=== PATIENT | male | born 1940 | race Caucasian/White ===

== ENCOUNTER 2018-02-14 13:44 | Observation (INO) | payer MEDICARE, OTHER, SELFPAY ==
[2018-02-14] VITALS (11 sets, daily range): BP systolic 99–109; BP diastolic 51–64; PULSE 58–83; RESP 15–18; TEMP 36.4–37.4; O2SAT 94–97; BMI 20.7; BMI 19.1; BMI 19.2
--- NOTE | 2018-02-14 13:48 | EKG12_ITS ---
Test Reason : CP Blood Pressure : / mmHG Vent. Rate : 061 BPM Atrial Rate : 061 BPM P-R Int : 152 ms QRS Dur : 114 ms QT Int : 428 ms P-R-T Axes : 053 -23 -20 degrees QTc Int : 430 ms Normal sinus rhythm Inferior infarct , age undetermined , cannot be excluded Abnormal ECG Confirmed by FLOR LEIGH, NUNU ([id number]), non linear editor FERNY SNOW ([id number]) on 02/16/2018 2:54:34 PM Referred By: DINESH/NAHUN Confirmed By:NUNU RAY MD
--- NOTE | 2018-02-14 13:51 | RAD_ITS ---
STUDY: X-RAY CHEST REASON FOR EXAM: Male, 77 years old. Chest pain TECHNIQUE: Single view of the chest was obtained COMPARISON: None. FINDINGS: No lung consolidation. Elevated left hemidiaphragm. Bilateral perihilar congestive changes. Ill-defined nodular density in the right upper lobe which can be assessed with chest CT on a nonemergent basis. Small left-sided pleural effusion with subsegmental atelectasis is suspected. IMPRESSION: Mild cardiomegaly with bilateral pulmonary vascular congestion. Elevated left hemidiaphragm with left lower lobe atelectasis and subtle airspace opacities. Ill-defined nodular density in the right upper lobe which can be assessed with nonemergent chest CT Electronically Signed: Leobardo Alvarado, at 14:29 EDT Tel , Service support , RAD/Chest 1 View (Portable)
[2018-02-14 14:07] LABS: Absolute Lymphocyte Count 1.65 X10^3/ul (0.83-4.51); Absolute Neutrophil Count 7.9 X10^3/uL (2.0-7.7); Basophil# 0.02 X10^3/uL; Basophil% 0.2 % (0-1); Eosinophil# 0.23 X10^3/uL; Eosinophils% 2.1 % (0-5); Hematocrit 31.6 % (40-54); Hemoglobin 10.2 g/dl (13.0-16.5); Lymphocyte # 1.65 X10^3/ul (4.0); Mean Corp Hgb Conc 32.3 g/gl (32-36); Mean Corpuscular Hgb 29.7 pg (27.0-32.0); Mean Corpuscular Volume 91.9 fL (80-94); Mean Platelet Vol. 8.2 fl (6.2-12.0); Monocyte# 1.18 X10^3/uL; Monocyte% 10.7 % (0-10); Neutrophil # 7.93 X10^3/uL (2.7-7.7); Neutrophil % 71.9 % (47-70); Platelet Count 259 K/mm3 (150-450); RBC Distribution Width CV 14.1 % (11.6-14.6); RBC Distribution Width SD 45.7 fl (35.1-43.9); Red Blood Count 3.44 M/mm3 (4.6-6.2)
[2018-02-14 14:08] LABS: POSITIVE COUNT NO; POSITIVE DIFFERENTIAL NO; POSITIVE MORPHOLOGY NO
--- NOTE | 2018-02-14 14:26 | ED.RN ---
PT DENIES PAIN OR NAUSEA AT THIS TIME. PT'S BP IS ALSO HYPOTENSIVE. NOT MEDICATING PT WITH MORPHINE OR ZOFRAN AT THIS TIME
[2018-02-14 14:27] LABS: Anion Gap 6 (5-15); BUN 13 mg/dL (7-18); BUN/Creat Ratio 16.3 RATIO (10-20); Calcium,Total 8.2 mg/dL (8.5-10.1); Chloride 107 mmol/L (98-107); EST Glomerular Filtration Rate 100 mL/min (>60); Est Glom Filt Rate - Afr Amer 121 mL/min (>60); Estimated Creatinine Clearance 67.81 ml/min; Glucose 95 mg/dL (74-106); Potassium 3.8 mmol/L (3.5-5.1); Sodium Level 140 mmol/L (136-145)
[2018-02-14 14:40] LABS: BNP,B-Type NATRIURETIC PEPTIDE 187.1 pg/mL (0-100)
--- NOTE | 2018-02-14 15:23 | CT_ITS ---
STUDY: CT CHEST WITHOUT CONTRAST REASON FOR EXAM: Male, 77 years old. Nodule found on chest x-ray RADIATION DOSAGE (If Supplied By Facility): CTDIvol = ( 9.88 ) mGy, DLP = ( 358.01 ) mGycm TECHNIQUE: Transaxial imaging was performed without the administration of intravenous contrast material. Individualized dose optimization techniques were used for this CT. COMPARISON: None. FINDINGS: There is an ill-defined wispy infiltrate throughout the right upper lobe. There is no evidence of discrete pulmonary mass or nodule. There is no demonstrated pleural abnormality. Coronary arterial calcifications are present. There is no pericardial effusion. There are scattered nonpathologically enlarged mediastinal nodes. Hilar areas are difficult to assess on this noncontrast study. There is no obvious hilar mass or adenopathy. Normal unenhanced pulmonary arteries. There are calcified plaques of the thoracic aorta. There is mild aneurysmal dilatation of the ascending thoracic aorta proximal to the arch measuring up to 3.7 cm in diameter. The bones are osteopenic. There is diffuse endplate spondylosis of the visualized thoracolumbar spine. Schmorl's node formation is seen involving several of the lower thoracic vertebrae. There are multiple old right-sided rib fractures. The majority of the gastric volume is within the thorax, which may represent evidence of gastric pull-through procedure. CT/Chest without Contrast IMPRESSION: 1. Ill-defined wispy infiltrate noted throughout the right upper lobe. There is no evidence of discrete pulmonary mass or nodule. 2. Mild aneurysmal dilatation of the ascending thoracic aorta proximal to the arch measuring up to 3.7 cm in diameter. 3. Generalized osteopenia. Diffuse endplate spondylosis of the visualized thoracolumbar spine. There is Schmorl's node formation of several of the lower thoracic vertebrae. There are multiple old right-sided rib fractures. 4. The majority of the gastric volume is within the thorax, which may represent evidence of gastric pull-through procedure. Electronically Signed: Ernesto Hawley MD at 17:41 EDT , Service support ,
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
--- NOTE | 2018-02-14 15:32 | ED.VISSUMM ---
- ER Visit Summary Date of Service: 02/14/18 Chief Complaint: [] Chest pain today nursing center History of Present Illness: The patient is a 77 M [] hx of memory loss prior fall with rib fractures complained to nursing staff and nursing center of left-sided chest pain he was brought to the emergency department he does not recall that history per the family he has been doing well at the nursing center he has a prior history for they believe a cardiac echo done years ago showing possible signs of CAD but he did not follow-up, he had surgery to the left side abdomen at some time as well. He has had no fever no cough no history of PE DVT or ID he has been eating and drinking light less than normal but in general doing okay at the nursing center Physical Examination: [] Patient really cannot provide any history he is very polite and pleasant cooperative he will move from topic to topic his HEENT chest neck exam unremarkable the abdomen soft nontender he points to the left subcostal margin as an area of discomfort that he has had for over 20 years since this abdominal surgery is upper lower extremities unremarkable neurologically he is awake to his normal answering questions moving all 4 extremities pleasantly confused very poor memory Test Results: [] Emergency Department Course and Treatment: [] EKG and labs are generally unremarkable see those reports a chest x-ray shows multiple abnormalities including findings consistent with CHF left pleural effusion and scattered other nonspecific nodules recommend follow-up CT please see those reports given all of the above I have called the hospital see him for admission and further management Treatment Plan: [] Disposition: [] Admit stable Impression: [] Chest pain, congestive heart failure, left pleural effusion, nonspecific pulmonary nodules This note was generated with [employer] dictation software. It may contain incorrect words, spelling, and punctuation that were not noted in review of the chart prior to signing ED Disposition - Plan for ED Patient: Chief Complaint: Chest Pain Referrals: Andreas Day PA-C [Primary Care Provider] -
--- NOTE | 2018-02-14 15:35 | ED.DCSUM_ITS ---
- ER Visit Summary Date of Service: 02/14/18 Chief Complaint: [] Chest pain today nursing center History of Present Illness: The patient is a 77 M [] hx of memory loss prior fall with rib fractures complained to nursing staff and nursing center of left- sided chest pain he was brought to the emergency department he does not recall that history per the family he has been doing well at the nursing center he has a prior history for they believe a cardiac echo done years ago showing possible signs of CAD but he did not follow-up, he had surgery to the left side abdomen at some time as well. He has had no fever no cough no history of PE DVT or ME he has been eating and drinking light less than normal but in general doing okay at the nursing center Physical Examination: [] Patient really cannot provide any history he is very polite and pleasant cooperative he will move from topic to topic his HEENT chest neck exam unremarkable the abdomen soft nontender he points to the left subcostal margin as an area of discomfort that he has had for over 20 years since this abdominal surgery is upper lower extremities unremarkable neurologically he is awake to his normal answering questions moving all 4 extremities pleasantly confused very poor memory Test Results: [] Emergency Department Course and Treatment: [] EKG and labs are generally unremarkable see those reports a chest x-ray shows multiple abnormalities including findings consistent with CHF left pleural effusion and scattered other nonspecific nodules recommend follow-up CT please see those reports given all of the above I have called the hospital see him for admission and further management Treatment Plan: [] Disposition: [] Admit stable Impression: [] Chest pain, congestive heart failure, left pleural effusion, nonspecific pulmonary nodules This note was generated with [employer] dictation software. It may contain incorrect words, spelling, and punctuation that were not noted in review of the chart prior to signing ED Disposition - Plan for ED Patient: Chief Complaint: Chest Pain Referrals: Andreas Day PA-C [Primary Care Provider] -
--- NOTE | 2018-02-14 17:21 | ECHOD_ITS ---
Reason For Study: CP Procedure This was a 2D Doppler, Color Flow transthoracic echocardiogram. Exam performed portable in patient room. Left Ventricle Normal LV size. Left ventricular systolic function is normal. The estimated ejection fraction is 47 %. Mild segmental systolic dysfunction (see wall motion). Transmitral diastolic flow velocities suggest mild (stage 1) diastolic dysfunction (reversed pattern). Mid-Inferior: Akinetic. Infero- Basal: Akinetic. Basal inferoseptal: Hypokinetic. The rest of the wall segments are normal. Right Ventricle Normal RV size. Normal systolic function. Atria Normal left atrium. Normal right atrium. Mitral Valve Normal mitral valve. Mild (1+) eccentric mitral valve insufficiency. Tricuspid Valve Normal tricuspid valve. Unable to estimate RV systolic pressure, pulmonary artery pressure probably normal. Aortic Valve Trisinus/trileaflet aortic valve. Mild (1+) eccentric aortic valve insufficiency. Pulmonic Valve Normal pulmonic valve. Great Vessels Mildly dilated aortic root. The pulmonary artery is normal size. Inferior vena cava collapse with sniff. Pericardium/Pleural No pericardial effusion. MMode/2D Measurements & Calculations LVIDd: 4.1 cm IVSd: 1.6 cm Ao root diam: 3.9 cm LVIDs: 3.0 cm LVPWd: 1.0 cm RVDd: 3.0 cm FS: 28.5 % LAV(MOD-bp): 35.3 ml EDV(MOD-sp4): 110.4 ml SV(MOD-sp4): 66.9 ml LAV(MOD-bp) Indexed: 21.0 ml/m2 ESV(MOD-sp4): 43.5 ml LAV(MOD-sp2): 37.0 ml EF(MOD-sp4): 60.6 % LAV(MOD-sp4): 29.4 ml LA A4 area: 12.9 cm2 RA A4 area: 11.1 cm2 Time Measurements MV dec time: 0.35 sec Doppler Measurements & Calculations MV E max oral: 68.8 cm/sec Lat Peak E' Oral: 8.9 cm/sec Med Peak E' Oral: 5.9 cm/sec MV A max oral: 112.2 cm/sec E/E' lat: 7.7 E/E' med: 11.7 MV E/A: 0.61 Ao V2 max: 168.3 cm/sec LV V1 max: 84.9 cm/sec PA V2 max: 101.6 cm/sec Ao max P.3 mmHg LV V1 max P.9 mmHg Interpretation Summary Normal LV size. The estimated ejection fraction is 47 %. Mild segmental systolic dysfunction (see wall motion). Transmitral diastolic flow velocities suggest mild (stage 1) diastolic dysfunction (reversed pattern). Mildly dilated aortic root. Ordering Physician: Malcom Jordan Referring Physician: N/A Performed By: Lise Mixon RDCS
[2018-02-14] MEDS: Budesonide Respules 0.5 MG/2 ML AMPUL.NEB. INHALATION (19:32)
[2018-02-14] MEDS: Montelukast 10 MG Tablet PO (22:35)
[2018-02-14] MEDS: Magnesium Oxide 400 MG Tablet PO (22:35)
[2018-02-14] MEDS: Metoprolol Tartrate 50 MG Tablet PO (22:35)
[2018-02-14] MEDS: Rivastigmine Tartrate 1.5 MG Capsule 3 MG PO (22:35)
[2018-02-14] MEDS: Zolpidem Tartrate 5 MG Tablet PO (23:50)
[2018-02-15] VITALS (9 sets, daily range): BP systolic 110–113; BP diastolic 43–52; PULSE 54–65; RESP 16–18; TEMP 36.4–36.9; O2SAT 94–96
[2018-02-15 04:22] LABS: Hematocrit 31.6 % (40-54); Hemoglobin 10.1 g/dl (13.0-16.5); Mean Corpuscular Hgb 28.9 pg (27.0-32.0); Mean Corpuscular Volume 90.5 fL (80-94); Mean Platelet Vol. 8.1 fl (6.2-12.0); Platelet Count 201 K/mm3 (150-450); RBC Distribution Width CV 14.5 % (11.6-14.6); RBC Distribution Width SD 47.1 fl (35.1-43.9); Red Blood Count 3.49 M/mm3 (4.6-6.2); White Blood Count 8.5 K/mm3 (4.4-11.0)
[2018-02-15 04:27] LABS: Scan Indicated on CBC? Y/N NO
[2018-02-15 04:36] LABS: International Normalized Ratio 1.2; Prothrombin Time (Protime)PT. 15.6 SECONDS (11.7-14.9)
[2018-02-15 04:38] LABS: Partial Thromboplast Time 45.8 Seconds (24.1-36.2)
[2018-02-15 05:08] LABS: Anion Gap 6 (5-15); BUN 12 mg/dL (7-18); Calcium,Total 8.3 mg/dL (8.5-10.1); Chloride 106 mmol/L (98-107); EST Glomerular Filtration Rate 115 mL/min (>60); Est Glom Filt Rate - Afr Amer 140 mL/min (>60); Estimated Creatinine Clearance 50.05 ml/min; Glucose 88 mg/dL (74-106); Potassium 3.9 mmol/L (3.5-5.1); Sodium Level 140 mmol/L (136-145)
--- NOTE | 2018-02-15 05:55 | EKG12_ITS ---
Test Reason : AM Blood Pressure : / mmHG Vent. Rate : 054 BPM Atrial Rate : 054 BPM P-R Int : 154 ms QRS Dur : 118 ms QT Int : 442 ms P-R-T Axes : 049 -19 -29 degrees QTc Int : 419 ms Sinus bradycardia Inferior infarct , age undetermined Abnormal ECG When compared with ECG of 14-FEB-2018 13:45, MANUAL COMPARISON REQUIRED, DATA IS UNCONFIRMED Confirmed by TOSIN DUMONT ([id number]), editor sound FERNY SNOW ([id number]) on 02/18/2018 3:05:13 PM Referred By: JOSE RAMON Confirmed By:TOSIN DUMONT
[2018-02-15] MEDS: Budesonide Respules 0.5 MG/2 ML AMPUL.NEB. INHALATION (07:34)
[2018-02-15] MEDS: Aspirin 81 MG TAB.CHEW PO (07:38)
--- NOTE | 2018-02-15 08:14 | NURSING ---
This nurse contacted [facility] in nuclear medicine at this time to notify him that patient was noted to have telemetry changes with a bundle branch block and bradycardia. EKG confirmed bradycardia but bundle branch had resolved prior to EKG. Patient to go around 0900 for stress.
--- NOTE | 2018-02-15 08:47 | EKG12_ITS ---
Test Reason : CHANGES Blood Pressure : / mmHG Vent. Rate : 059 BPM Atrial Rate : 059 BPM P-R Int : 150 ms QRS Dur : 114 ms QT Int : 428 ms P-R-T Axes : 054 -23 -24 degrees QTc Int : 423 ms Sinus bradycardia Inferior infarct , age undetermined Abnormal ECG When compared with ECG of 15-FEB-2018 05:23, MANUAL COMPARISON REQUIRED, DATA IS UNCONFIRMED Confirmed by TOSIN DUMONT ([id number]), business editor FERNY SNOW ([id number]) on 02/18/2018 3:05:48 PM Referred By: MADONNA Confirmed By:TOSIN DUMONT
[2018-02-15] MEDS: Multivitamins,Therapeutic Tablet 1 TABLET PO (11:13)
--- NOTE | 2018-02-15 11:13 | NURSING ---
Patient returned from stress test. Vitals obtained and medications due at 0800 and 1000 given at this time.
[2018-02-15] MEDS: Loratadine 10 MG Tablet PO (11:14)
[2018-02-15] MEDS: Folic Acid 1 MG Tablet PO (11:14)
[2018-02-15] MEDS: Venlafaxine XR 37.5 MG Capsule PO (11:14)
[2018-02-15] MEDS: dilTIAZem CD 240 MG Capsule PO (11:14)
[2018-02-15] MEDS: Rivastigmine Tartrate 1.5 MG Capsule 3 MG PO (11:15)
[2018-02-15] MEDS: Pantoprazole Sodium 20 MG Tablet PO (11:15)
[2018-02-15] MEDS: Rivaroxaban 20 MG Tablet PO (11:15)
[2018-02-15] MEDS: Metoprolol Tartrate 50 MG Tablet PO (11:15)
[2018-02-15] MEDS: Magnesium Oxide 400 MG Tablet PO (11:15)
--- NOTE | 2018-02-15 11:52 | STRESSREP ---
Stress Test Report Pharmacologic myocardial perfusion stress test. 77-year-old lady with a history of chest pain. Medications aspirin Cardizem metoprolol. Stress protocol: Resting EKG demonstrates normal sinus rhythm with a rate of 62 bpm normal intervals and noted resting blood pressure is 110/58 centimeters of mercury. The patient exercised according to regular Ivan protocol for 2 minutes and 44 seconds attaining a maximum heart rate of 89 bpm which was 62% of maximum predicted heart rate. To the low workload the test was changed to a pharmacologic stress test. 0.4 mg of regadenoson was infused per usual protocol followed by rapid intravenous saline flush injection continuous EKG which was performed the patient maintained sinus rhythm throughout the recording. Nonspecific ST-T wave changes were noted at rest and during peak infusion the resting blood pressure is 108/58 mmHg. Myocardial perfusion protocol. 11.3 mCi of technetium 99m sestamibi was injected at rest. 0.4 mg regadenoson was infused per usual protocol peak infusion 32.4 mCi of technetium 99m sestamibi was injected stress images were obtained stress and rest images were reconstructed and compared in the short axis vertical long and horizontal long axis. Gated images were also obtained Perfusion SPECT analysis. Review of the stress images demonstrate normal perfusion noted in the anteroseptal wall anterior wall, and basal inferior wall. There is a large defect involving the entire inferior wall towards the apex in the basal lateral wall and septum. The resting images demonstrate a similar patent. There is no improvement to suggest ischemia. Gated SPECT analysis: The gated ejection fraction is noted to be 27% with severe hypokinesis to akinesis of the inferior wall. Conclusion: Pharmacologic myocardial perfusion stress test with evidence of previous extensive inferior infarct. The infarct extends to the basal lateral wall as well as the basal septal wall. No ischemia is noted. Ischemic cardiomyopathy present.
--- NOTE | 2018-02-15 13:23 | PCM.PN.HOSP ---
Patient Problems: Active and Suspected Problems Chest pain (Acute) Dementia (Acute) Subjective: No further chest pain. Vitals/I&O's: Vital Signs Temp Pulse Resp BP Pulse Ox 36.8 C 65 18 111/52 L 96 02/15/18 11:05 02/15/18 11:15 02/15/18 11:05 02/15/18 11:05 02/15/18 11:05 Oxygen Flow Rate (L/min) 2 Oxygen Delivery Method Room Air Weight: 57.2 kg Body Mass Index (BMI) 19.1 Intake and Output for Last 24 Hours 02/13/18 02/14/18 02/15/18 23:59 23:59 23:59 Intake Total 120 / 120 470 / 470 Balance 120 / 120 470 / 470 General: Alert, Cooperative, No apparent distress HEENT: Atraumatic, Normocephalic Neck: No Nodes, Thyroid Normal Size and Texture Lungs: Clear to auscultation, Normal air movement, No rhonchi, No wheeze Cardiovascular: Regular rate, Regular Rhythm, Normal S1, Normal S2, No murmurs Abdomen: Bowel Sounds Present, Soft, Non Tender, Non-Distended, No Hepato-splenomegaly Extremities: No edema, No Calf Tenderness Skin: No rashes, No breakdown Psych/Mental Status: Normal Affect, Appropriate Laboratory Results 02/14/18 18:15: Troponin I < 0.02 02/14/18 22:25: Troponin I < 0.02 02/15/18 04:08: WBC 8.5, RBC 3.49 L, Hgb 10.1 L, Hct 31.6 L, MCV 90.5, MCH 28.9, MCHC 32.0, RDW 14.5, RDW Differential 47.1 H, Plt Count 201, MPV 8.1 02/15/18 04:08: Sodium 140, Potassium 3.9, Chloride 106, Carbon Dioxide 28.0, Anion Gap 6, BUN 12, Creatinine 0.70, Estim Creat Clear Calc 50.05, Est GFR (MDRD) Af Amer 140, Est GFR (MDRD) Non-Af 115, BUN/Creatinine Ratio 17.0, Glucose 88, Calcium 8.3 L, Magnesium 2.0 02/15/18 04:08: Troponin I < 0.02 02/15/18 04:08: PT 15.6 H, INR 1.2, APTT 45.8 H Current Medications Al Hydroxide/Mg Hydroxide (Mylanta Ii) 30 ml PO Q6H PRN PRN PRN Reason: Gastric burning Aspirin (Aspirin, Baby) 81 mg PO DAILY@0800 [facility] Last Admin: 02/15/18 07:38 Dose: 81 mg Budesonide (Pulmicort Aerosol) 0.5 mg INHALATION BID [facility] Last Admin: 02/15/18 07:34 Dose: 0.5 mg Diltiazem HCl (Cardizem Cd) 240 mg PO DAILY [facility] Last Admin: 02/15/18 11:14 Dose: 240 mg Folic Acid (Folic Acid) 1 mg PO DAILY@0800 [facility] Last Admin: 02/15/18 11:14 Dose: 1 mg Lactobacillus Acidophilus (Acidophilus) 1 tablet PO BID [facility] Last Admin: 02/15/18 11:13 Dose: 1 tablet Loratadine (Claritin) 10 mg PO DAILY [facility] Last Admin: 02/15/18 11:14 Dose: 10 mg Magnesium Hydroxide (Milk Of Magnesia) 30 ml PO DAILY PRN PRN Reason: Constipation Magnesium Oxide (Mag-Ox 400) 400 mg PO BID [facility] Last Admin: 02/15/18 11:15 Dose: 400 mg Metoprolol Tartrate (Lopressor (Beta Carroll)) 50 mg PO BID [facility] Last Admin: 02/15/18 11:15 Dose: 50 mg Montelukast Sodium (Singulair) 10 mg PO QHS [facility] Last Admin: 02/14/18 22:35 Dose: 10 mg Multivitamins (Multivitamin) 1 tablet PO DAILY@0800 [facility] Last Admin: 02/15/18 11:13 Dose: 1 tablet Nitroglycerin (Nitrostat) 0.4 mg SUBLINGUAL Q5M PRN PRN Reason: CHEST PAIN Nutritional Formula (Lactose Free) (Ensure Enlive) 120 ml PO 4X/DAY [facility] Last Admin: 02/15/18 11:16 Dose: Not Given Ondansetron HCl (Zofran) 4 mg IV Q8H PRN PRN PRN Reason: NAUSEA Pantoprazole Sodium (Protonix) 20 mg PO DAILY [facility] Last Admin: 02/15/18 11:15 Dose: 20 mg Rivaroxaban (Xarelto) 20 mg PO DAILY [facility] Last Admin: 02/15/18 11:15 Dose: 20 mg Rivastigmine Tartrate (Exelon) 3 mg PO BID [facility] Last Admin: 02/15/18 11:15 Dose: 3 mg Sodium Chloride () 5 - 30 ml IV UD PRN PRN Reason: SALINE FLUSH Temazepam (Restoril) 15 mg PO QHS PRN DAVION Tramadol HCl (Ultram) 50 mg PO TID PRN PRN PRN Reason: PAIN Venlafaxine HCl (Effexor Xr) 37.5 mg PO DAILY [facility] Last Admin: 02/15/18 11:14 Dose: 37.5 mg Zolpidem Tartrate (Ambien (Generic)) 5 mg PO QHS PRN PRN PRN Reason: INSOMNIA Last Admin: 02/14/18 23:50 Dose: 5 mg Medical Necessity - Tobacco Use Smoking Status: Former smoker Assessment/Plan Active and Suspected Problems Chest pain (Acute) Dementia (Acute) 1. Chest pain stress negative however, stress noted EF of 27%. Will await echo to see if that low, and if so, will consult cardiology for input. 2. dementia: complicating care. Code Visit OBSV E&M: 05779 Subsequent observation care L2
--- NOTE | 2018-02-15 15:02 | CASEMGMT ---
Addendum entered by Dionne Park 02/15/18 15:35: NANCY also let Tammi at [facility] know patient is being d/c as he is active with them per [facility]. Dionne BHAT Original Note: Addendum entered by Dionne Park 02/15/18 15:25: NANCY faxed d/c instructions to [facility]. Dionne BHAT Original Note: NANCY spoke with physician and patient will likely be discharged back to [facility] today. NANCY called patient's son, David and left him a voice mail letting him know patient will likely be d/c today. NANCY then called [facility] and let them know patient will likely return today. Patient's other son Santo came in and he said he will transport patient back. Plan: d/c back to [facility]. Family will transport. Dionne BHAT
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
== END 2018-02-15 15:03 | disposition home or self-care (01) ==
LOC: ED 14:38 → PCU 15:49
PROVIDERS: Family Medicine; Admitting Provider Internal Medicine; Emergency Provider Emergency Medicine; Family Provider Family Medicine; PCP Family Medicine
DX: R07.89 Other chest pain (principal); F03.90 Unspecified dementia, unspecified severity, without behavioral disturbance, psychotic disturbance, mood disturbance, and anxiety; I48.0 Paroxysmal atrial fibrillation; K21.9 Gastro-esophageal reflux disease without esophagitis; Z79.899 Other long term (current) drug therapy; Z79.82 Long term (current) use of aspirin; Z87.891 Personal history of nicotine dependence; Z79.51 Long term (current) use of inhaled steroids; Z79.01 Long term (current) use of anticoagulants; Z91.81 History of falling; R41.3 Other amnesia; I11.0 Hypertensive heart disease with heart failure; I50.9 Heart failure, unspecified
CPT/HCPCS: 36415; 71045; 71250; 78452; 80048; 83735; 83880; 84484; 85025; 85027; 85610; 85730; 93005; 93017; 93306; 94640; 97802; 99218; 99251; 99285; A9500; J7030; A4216; G0378; G0463; J2785

== ENCOUNTER 2018-03-06 13:55 | Emergency (ER) | payer MEDICARE, OTHER, SELFPAY ==
[2018-03-06 13:57] VITALS: BP 104/74; PULSE 47; RESP 16; TEMP 36.8; O2SAT 100; BMI 27.8
--- NOTE | 2018-03-06 14:12 | CT_ITS ---
STUDY: CT ABDOMEN AND PELVIS WITH CONTRAST REASON FOR EXAM: Male, 77 years old. Abdominal pain RADIATION DOSAGE (If Supplied By Facility): CTDIvol = ( 10.94 ) mGy, DLP = ( 561.52 ) mGycm TECHNIQUE: Transaxial images were obtained from the dome of the diaphragm to the symphysis pubis without oral contrast. 100mL ml of Isovue 300 contrast was administered. Sagittal and coronal images were reconstructed. Individualized dose optimization techniques were used for this CT. COMPARISON: None. FINDINGS: There is elevation of the left hemidiaphragm with overlying atelectasis. The visualized portions of the heart and pericardium are within normal limits. There are small gallstones present. The liver is within normal limits. There are no suspicious hepatic lesions. The spleen is normal in size. The pancreas is within normal limits. The adrenal glands are within normal limits. There are no obstructing renal stones. There is no hydronephrosis. There is a cyst in the left kidney. 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 There is debris noted in the gastric lumen. There is no bowel obstruction or inflammation. The appendix is not visualized, but there are no findings to suggest acute appendicitis. The aorta is normal in caliber. There is no abdominal or pelvic free air, free fluid or fluid collection. There is a 7.4 x 5.0 cm soft tissue mass along the sacrum and left pelvic sidewall which encases the left iliac vessels. This may represent enlarged lymph nodes and is suspicious for neoplasm. The prostate is enlarged, measuring 6.4 x 4.7 cm. There are no destructive osseous lesions. CT/Abdomen/Pelvis W IV Cont ONLY IMPRESSION: No bowel obstruction or inflammation. 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 There is debris noted in the gastric lumen. 7.4 x 5.0 cm soft tissue mass along the sacrum and left pelvic sidewall which encases the left iliac vessels. This may represent enlarged lymph nodes and is suspicious for neoplasm. Further evaluation with PET/CT is recommended. Gallstones. Enlarged prostate. Electronically Signed: Cash Amin, at 15:17 EDT Tel , Service support ,
[2018-03-06 14:21] LABS: Absolute Lymphocyte Count 1.44 X10^3/ul (0.83-4.51); Absolute Neutrophil Count 3.6 X10^3/uL (2.0-7.7); Basophil# 0.02 X10^3/uL; Basophil% 0.3 % (0-1); Eosinophil# 0.26 X10^3/uL; Eosinophils% 4.4 % (0-5); Hematocrit 33.8 % (40-54); Hemoglobin 10.8 g/dl (13.0-16.5); Lymphocyte # 1.44 X10^3/ul (4.0); Lymphocyte % 24.2 % (19-41); Mean Corpuscular Hgb 29.7 pg (27.0-32.0); Mean Corpuscular Volume 92.9 fL (80-94); Mean Platelet Vol. 7.9 fl (6.2-12.0); Monocyte# 0.63 X10^3/uL; Monocyte% 10.6 % (0-10); Neutrophil % 60.3 % (47-70); Platelet Count 251 K/mm3 (150-450); RBC Distribution Width CV 14.4 % (11.6-14.6); RBC Distribution Width SD 47.5 fl (35.1-43.9); Red Blood Count 3.64 M/mm3 (4.6-6.2)
[2018-03-06 14:22] LABS: POSITIVE COUNT NO; POSITIVE DIFFERENTIAL NO; POSITIVE MORPHOLOGY NO
[2018-03-06] MEDS: 0.9% Normal Saline 1,000 ML 1000 ML IV (14:22)
[2018-03-06 14:44] LABS: ALB/GLOB Ratio 0.8 RATIO (0.9-2.4); AST(SGOT) 19 U/L (15-37); Alanine Aminotransfer ALT/SGPT 9 U/L (16-61); Albumin, Serum 3.1 g/dL (3.2-5.0); Alkaline Phosphatase 81 U/L (45-117); Anion Gap 6 (5-15); BUN 18 mg/dL (7-18); BUN/Creat Ratio 16.1 RATIO (10-20); Chloride 104 mmol/L (98-107); Creatinine, Serum 1.12 mg/dL (0.70-1.30); EST Glomerular Filtration Rate 68 mL/min (>60); Est Glom Filt Rate - Afr Amer 82 mL/min (>60); Estimated Creatinine Clearance 51.64 ml/min; Globulin 3.9 g/dL (2.2-4.2); Glucose 123 mg/dL (74-106); Lipase 255 U/L (73-393); Potassium 4.4 mmol/L (3.5-5.1); Sodium Level 139 mmol/L (136-145)
[2018-03-06 15:39] LABS: Bacteria 0 SEEN /hpf (None Seen); Mucous, Urine 0 SEEN /hpf (<or=2+); Squamous Epithelial Cells - UA 0 SEEN /hpf (0-5); White Blood Cells 0 SEEN /hpf (0-5)
--- NOTE | 2018-03-06 15:42 | ED.VISSUMM ---
- ER Visit Summary Date of Service: 03/06/18 Chief Complaint: Abnormal abdominal x-ray History of Present Illness: The patient is a 77 M who states that he was told he had an x-ray today that was abnormal. Patient states he has pain in the left lower mid axillary line rib. He states he had a bowel movement prior to arrival. There was reportedly a abdominal x-ray that showed a mild colonic ileus. Patient is a full code. He has a history of vascular dementia. History is mostly obtained from what records came from the [facility]. Physical Examination: Afebrile vital signs stable Gen: Well-nourished well-developed Head: Normocephalic atraumatic Eyes: Perrl EOMI ENT: TMs clear no rhinorrhea moist mucous membranes Neck: Supple no lymphadenopathy no JVD nontender CVS: Regular rate rhythm no murmurs normal S1-S2 Respiratory: No distress clear to auscultation bilaterally chest nontender Abdomen: Soft nontender nondistended normal bowel sounds no masses Back: Nontender Extremity: Nontender no edema Skin: Normal color no rash Neuro: alert orientated to CN II-XII intact normal strength sensation reflexes gait cerebellar Psych: Normal affect normal mood Test Results: CBC CMP lipase showed glucose 123 and lipase of 253. CT the pelvis with IV contrast them serrated a large amount of stool in the right hemicolon with some air just above it. There is also noted a large pelvic mass along the sacrum and left iliac encasing the iliac vessels. Patient does not know if he has ever been told this. Emergency Department Course and Treatment: Woke with Dr. Ibrahim who is covering his primary care physician Dr. Cox. Then write for some magnesium citrate to see if we can help move the stool on the right colon along. Dr. Ibrahim also asked if I would write for a palliative consult. He will speak with Dr. Parra about this in the office on Thursday. Impression: 1. Abdominal pain 2. Pelvic mass This note was generated with [employer] dictation software. It may contain incorrect words, spelling, and punctuation that were not noted in review of the chart prior to signing ED Disposition - Plan for ED Patient: Disposition: Home or Assisted Living Chief Complaint: Abd Pain Prescriptions: Magnesium Citrate [Citrate Of Magnesia] 150 ml PO BID #4 bottle Referrals: Denise Cox MD [Primary Care Provider] - As soon as possible Additional Instructions: Mr. Ibanez needs to have a palliative consult. Dr. Ibrahim will speak with Dr. Cox regarding today's findings.
[2018-03-06 15:48] LABS: Color, Urine Yellow (Yellow); Glucose, Dipstick Normal (Normal); Ketone-Dipstick Negative (Negative); Leukocyte Esterase-Dipstick Negative /ul (Negative); Nitrite-Dipstick Negative (Negative); Occult Blood-Urine 25 /ul (Negative); Protein-Dipstick Negative (Negative); Urine Bilirubin Dipstick Negative (Negative); Urine Clarity Clear (Clear); Urine Urobilinogen Normal (Normal)
--- NOTE | 2018-03-06 15:50 | ED.DCSUM_ITS ---
- ER Visit Summary Date of Service: 03/06/18 Chief Complaint: Abnormal abdominal x-ray History of Present Illness: The patient is a 77 M who states that he was told he had an x-ray today that was abnormal. Patient states he has pain in the left lower mid axillary line rib. He states he had a bowel movement prior to arrival. There was reportedly a abdominal x-ray that showed a mild colonic ileus. Patient is a full code. He has a history of vascular dementia. History is mostly obtained from what records came from the [facility]. Physical Examination: Afebrile vital signs stable Gen: Well-nourished well-developed Head: Normocephalic atraumatic Eyes: Perrl EOMI ENT: TMs clear no rhinorrhea moist mucous membranes Neck: Supple no lymphadenopathy no JVD nontender CVS: Regular rate rhythm no murmurs normal S1-S2 Respiratory: No distress clear to auscultation bilaterally chest nontender Abdomen: Soft nontender nondistended normal bowel sounds no masses Back: Nontender Extremity: Nontender no edema Skin: Normal color no rash Neuro: alert orientated to CN II-XII intact normal strength sensation reflexes gait cerebellar Psych: Normal affect normal mood Test Results: CBC CMP lipase showed glucose 123 and lipase of 253. CT the pelvis with IV contrast them serrated a large amount of stool in the right hemicolon with some air just above it. There is also noted a large pelvic mass along the sacrum and left iliac encasing the iliac vessels. Patient does not know if he has ever been told this. Emergency Department Course and Treatment: Woke with Dr. Ibrahim who is covering his primary care physician Dr. Cox. Then write for some magnesium citrate to see if we can help move the stool on the right colon along. Dr. Ibrahim also asked if I would write for a palliative consult. He will speak with Dr. Parra about this in the office on Thursday. Impression: 1. Abdominal pain 2. Pelvic mass This note was generated with [employer] dictation software. It may contain incorrect words, spelling, and punctuation that were not noted in review of the chart prior to signing ED Disposition - Plan for ED Patient: Disposition: Home or Assisted Living Chief Complaint: Abd Pain Prescriptions: Magnesium Citrate [Citrate Of Magnesia] 150 ml PO BID #4 bottle Referrals: Denise Cox MD [Primary Care Provider] - As soon as possible Additional Instructions: Mr. Ibanez needs to have a palliative consult. Dr. Ibrahim will speak with Dr. Cox regarding today's findings.
[2018-03-06 15:54] LABS: Red Blood Cells-Urine 0-5 SEEN /hpf (0-5)
[2018-03-06 16:15] VITALS: BP 112/72; PULSE 71; RESP 16; TEMP 36.2; O2SAT 98
--- NOTE | 2018-03-06 16:34 | ED.RN ---
ATTEMPTED TO CALL REPORT TO LARISA. ON HOLD FOR 10 MIN.
--- NOTE | 2018-03-06 16:39 | ED.RN ---
REPORT TO SUGEYROSY.
== END 2018-03-06 16:15 | disposition home or self-care (01) ==
PROVIDERS: Emergency Provider Emergency Medicine; Family Provider Family Medicine; PCP Family Medicine
DX: R19.04 Left lower quadrant abdominal swelling, mass and lump (principal); R10.9 Unspecified abdominal pain; F01.50 Vascular dementia, unspecified severity, without behavioral disturbance, psychotic disturbance, mood disturbance, and anxiety; K21.9 Gastro-esophageal reflux disease without esophagitis; I10 Essential (primary) hypertension; I48.91 Unspecified atrial fibrillation; Z87.19 Personal history of other diseases of the digestive system; Z87.891 Personal history of nicotine dependence; Z79.82 Long term (current) use of aspirin; Z79.899 Other long term (current) drug therapy
CPT/HCPCS: 74177; 80053; 81001; 83690; 85025; 99285; J7030; Q9967; A4216

== ENCOUNTER → 2018-04-05 08:45 | Outpatient (CLI) | payer MEDICARE, OTHER, SELFPAY ==
--- NOTE | 2018-04-05 07:00 | PET_ITS ---
EXAMINATION: FDG PET CT INDICATIONS: A 77-year-old male with apparent history of suspected neoplasm. COMPARISON EXAMINATION: CT of the chest report dated 02/14/18, CT of the abdomen and pelvis report dated 03/10/18. INDEX LESION SIZE SUV INTERPRETATION Left orbit, frontal sinus, right outsole handler space, left neck 48.8 mm x 56.5 mm largest (frame 248) 13.4 (max) Fulfills quantitative criteria for viable neoplasm Pre-subcarinal middle, anterior and posterior mediastinum 36.5 mm largest (frame 193) 11.9 (max) Fulfills quantitative criteria for viable neoplasm Heterogeneous splenic parenchyma 21.3 mm x 26.8 mm (frame 133) 8.4 Fulfills quantitative criteria for viable neoplasm Superior and inferior pole left kidney 44.1 mm largest (frame 137) 13.3 (max) Fulfills quantitative criteria for viable neoplasm Left adrenal gland 3.9 Fulfills quantitative criteria for viable neoplasm Abdominal-pelvic retroperitoneum and mesentery 9.4 cm x 7.6 cm largest (frame 82) 18.8 (max) Fulfills quantitative criteria for viable neoplasm Extracorporal soft tissue, osseous skeletal structures 10.2 (max) Fulfills quantitative criteria for viable neoplasm TECHNIQUE: Following the intravenous administration of 16.1 mCi of F-18 deoxyglucose via the left forearm, multiplanar image acquisitions of the neck, chest, abdomen and pelvis to level of mid thigh, obtained at one hour post radiopharmaceutical administration contemporaneously interpreted with the current CT of the neck, chest, abdomen and pelvis to level of mid thigh, dated 04/05/[address] of the chest report dated 02/14/18, CT of the abdomen and pelvis report dated 03/10/18 reveal: SERUM GLUCOSE LEVEL: 81 mg/dl. HEIGHT: 68 inches. WEIGHT: 160 lbs. FINDINGS: 1. Increased glucose concentration is defined in the right outsole handler space extending to the right lateral neck, the left posterior orbit extending medially, frontal sinus, left lateral neck involving level II B with apparent involvement of the right mandible and left axilla. The calculated maximum standard uptake value is 13.4. The maximal axial diameter of the largest individual hypermetabolic abnormality on review of CT of the head-neck dated 04/05/18 is 48.8 mm (transverse) x 56.5 mm (AP). 2. There is an increase in glucose metabolism manifest in the pre-subcarinal middle, anterior and posterior mediastinum generating a calculated maximum standard uptake value of 11.9. The maximal axial diameter of the metabolic, morphologic abnormality on review of CT of the thorax dated 04/05/18 is 36.5 mm (transverse). 3. Focal increased radiopharmaceutical concentration is demonstrated in the left upper abdomen, which appears contiguous to the splenic parenchyma generating a calculated maximum standard uptake value 8.4. The maximal axial diameter of the corresponding metabolic abnormality on review of CT of the abdomen dated 04/05/18 is 21.3 mm (transverse) x 26.8 mm (AP). 4. There is an increase in labeled glucose uptake observed in the left upper abdomen soft tissue mass formation contiguous to the inferior and superior pole of the left kidney generating a calculated maximum standard uptake value of 13.3. The maximal axial diameter of the corresponding metabolic, morphologic abnormality on review of CT of the abdomen dated 04/05/18 is 44.1 mm (transverse). 5. There is focal increased radiotracer concentration is defined in the left upper abdomen contiguous to the left adrenal gland generating a calculated maximum standard uptake value of 3.9. 6. Multiple foci of increased glucose concentration are disseminated throughout the abdominal-pelvic retroperitoneum and mesentery, a single focus within the left inguinal region, potentially apparent in the external genitalia generating a calculated maximum standard uptake value of 18.8. The largest corresponding metabolic, morphologic abnormality extends into the fifth lumbar vertebra with a maximal axial diameter of approximately 9.4 cm (transverse) x 7.6 cm (AP). 7. Focal increased glucose concentration is observed in the right proximal humeral metaphysis, the greater trochanteric aspect of the left proximal femur, right lower posterior abdominal wall localized to the paravertebral musculature and right upper posterior chest wall generating a calculated maximum standard uptake value of 10.2. 6. Normal physiologic distribution of the radiopharmaceutical is apparent in the hepatic (2.5) parenchyma, both renal units, bladder and visualized intestinal tract. There is uniform distribution of the radiopharmaceutical concentration compared on the cerebellar hemispheres and cerebral cortex. Diffuse intestinal tract activity is noted throughout all four quadrants of the abdominal-pelvic retroperitoneum, mesentery consistent with normal physiologic distribution of the radiopharmaceutical. Pertinent CT findings are as follows. CHEST: Coronary arterial calcification is observed. Atherosclerotic calcification is defined in the thoracic aorta without evidence of dilatation, aneurysm formation. A prominent hiatal hernia is defined. There are no parenchymal densities-nodules noted in the right-left hemithorax manifesting quantitatively significant increased glucose metabolism. ABDOMEN AND PELVIS: Cholelithiasis is defined. Atherosclerotic calcification is defined in the abdominal aorta without evidence of dilatation, aneurysm formation. Abdominal-pelvic arterial calcification is observed. Dystrophic calcifications are manifest within the prostate gland. Additional left inguinal and visualized right subcentimeter inguinal soft tissue densities are non-glucose avid. SKELETAL: Diffuse demineralization is defined. Degenerative changes defined in the cervical, thoracic and lumbar spine demonstrate no evidence for glucose hypermetabolism. Mixed sclerotic change is manifest at the level of the fifth lumbar vertebra associated with neoplastic infiltration. PET/PET/CT Tumor Base -Thigh Init IMPRESSION: 1. 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 2. Increased glucose concentration noted in the left orbit, frontal sinus, right outsole handler space, left lateral neck fulfills quantitative criteria for viable neoplasm. 3. Viable neoplasm is demonstrated in the mediastinal structures. 4. The focus of facilitated labeled glucose metabolism manifest in the splenic parenchyma fulfills quantitative criteria for malignant transformation. (Jeannie et al, J Nucl Med 44:1072, 2001). 5. Superior and inferior pole left kidney hypermetabolic foci fulfill quantitative criteria for viable neoplasm. 6. The left adrenal gland hypermetabolic focus fulfills quantitative criteria for viable neoplasm. 7. Multifocal increased glucose concentration noted throughout the abdominal-pelvic retroperitoneum and mesentery fulfills quantitative criteria for viable neoplasm. 8. Soft tissue extracorporal and osseous skeletal hypermetabolic foci fulfill quantitative criteria for viable neoplasm. (Petra dobbins al, Clinical Nuclear Medicine 29:161, 2004). Electronic Signature Harrison Vásquez D.O. Electronically Signed: Harrison Vásquez DO at 22:37 EDT Tel , Service support ,
--- NOTE | 2018-04-05 08:45 | DT_ITS ---
This patient was seen during an EMR downtime April 05, 2018 - April 12, 2018. This patient may have a combination of paper and electronic documentation or all paper documentation. All documentation is viewable within the e-chart portion of [employer] for each patient visit.
== END ==
PROVIDERS: Family Provider Family Medicine; PCP Family Medicine; Visit Provider Family Medicine
DX: R93.5 Abnormal findings on diagnostic imaging of other abdominal regions, including retroperitoneum (principal)
CPT/HCPCS: 78815; A9552; A4216